=== PATIENT | male | born 2000 | race Caucasian/White ===

== ENCOUNTER → 2022-03-24 | Outpatient (CLI) | payer OTHER ==
[~2022-03-24] MED LIST: ACET325UDC PO; ANTOXYBENA OT; FLORIDE QD; Keflex500 MG PO; NEOPOLHYDS OT
== END | disposition home or self-care (01) ==
LOC: LAB SHORT 11:08
DX: L81.4 Other melanin hyperpigmentation (principal)
CPT/HCPCS: 88305

== ENCOUNTER 2024-04-19 08:24 | Day surgery (SDC) | payer OTHER ==
[~2024-04-19] VITALS: Ht 210.8 cm; Wt 83.8 kg
[~2024-04-19 08:24] MED LIST changes: +NS 0 ML IV ONE
[2024-04-19] MEDS ORDERED: Bupivacaine 0.5% W/EPI 1:200000 SDV 30 ML Vial ONE (08:58)
[2024-04-19] MEDS ORDERED: Dexmedetomidine HCL 200 MCG / 2 ML ONE (08:58)
[2024-04-19] MEDS ORDERED: Lactated Ringer's 1,000 ML IV ONE ×2 (09:13→09:48)
[2024-04-19] MEDS ORDERED: CeFAZolin Sodium 2,000 MG VIAL ONE (09:14)
[2024-04-19] MEDS ORDERED: Midazolam HCl 1MG / ML 2ML Vial ONE (09:17)
[2024-04-19] MEDS ORDERED: FentaNYL Citrate 50 MCG/ML 2 ML Injection ONE (09:17)
[2024-04-19] MEDS ORDERED: propofoL 20 ML IV ONE (09:17)
[2024-04-19] MEDS ORDERED: Ondansetron HCl 2 MG / ML 2ML Vial ONE (09:17)
[2024-04-19] MEDS ORDERED: Dexamethasone Sod Phos 10 MG/ML 1ML VIAL ONE (09:17)
[2024-04-19] MEDS ORDERED: Lidocaine 2%-Epineph 1:200000 20 ML SDV ONE (09:19)
--- NOTE | 2024-04-19 09:52 | NUR ---
04/19/24 0952 Emilie Abbott PT RECEIVED AN AXCILLARY BLOCK. PT MONITORED VIA SP02, VSS, O2 AT 99-100%. DR. MANZO PERFORMED BLOCK. PT TOLERATED BLOCK WELL.
[2024-04-19 11:03] VITALS: BP 115/71
--- NOTE | 2024-04-19 11:14 | NUR ---
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
== END 2024-04-19 11:50 | disposition home or self-care (01) ==
LOC: ORSCSDS 08:24
PROVIDERS: Orthopaedic Surgery
PROC: 0PH Upper Bones, Insertion (ICD-10-PCS; principal; 2024-04-19 09:45)
DX: S62.022A Displaced fracture of middle third of navicular [scaphoid] bone of left wrist, initial encounter for closed fracture (principal); Y93.I9 Activity, other involving external motion; Z87.891 Personal history of nicotine dependence
CPT/HCPCS: C1713; C1769; J0690; J1100; J2250; J2405; J2704; J3010; J7040; J7120